=== PATIENT | female | born 1960 | race Caucasian/White ===

== ENCOUNTER 2019-01-08 13:28 | Emergency (ER) | payer MEDICARE ==
[~2019-01-08] VITALS: Ht 177.8 cm; Wt 93.2 kg
[2019-01-08] MEDS ORDERED: albuterol 2.5 MG/3 ML nebule NEB ONE ×2 (13:55→15:15)
[2019-01-08] MEDS ORDERED: predniSONE 20 mg tablet PO ONE (15:15)
[2019-01-08] MEDS ORDERED: PRED20TA PO (15:17)
[2019-01-08] MEDS ORDERED: AZIT250T PO (15:17)
[2019-01-08] MEDS ORDERED: ALBU6.7H9 INH (15:17)
[2019-01-08 15:55] VITALS: BP 143/70
== END 2019-01-08 15:57 | disposition home or self-care (01) ==
LOC: ER 13:29
DX: J20.9 Acute bronchitis, unspecified (principal); J45.909 Unspecified asthma, uncomplicated; Z87.891 Personal history of nicotine dependence; Z90.710 Acquired absence of both cervix and uterus; Z98.890 Other specified postprocedural states; Z79.899 Other long term (current) drug therapy
CPT/HCPCS: 71046; 94640; 94760; 99284; J7512